=== PATIENT | female | born 1975 | race Two or more races ===

== ENCOUNTER 2021-08-01 13:40 | Outpatient (CLI) | payer OTHER ==
[~2021-08-01 13:40] MED LIST: CIPROFLOXA500 MG/51; NORFLEX100MG PO; VOLTAREN-XR100 MG PO
== END 2021-08-01 13:49 | disposition home or self-care (01) ==
LOC: RAD 13:40
PROVIDERS: ATTEND Physical Medicine & Rehabilitation
DX: M54.6 Pain in thoracic spine (principal); M54.16 Radiculopathy, lumbar region; M54.59 Other low back pain

== ENCOUNTER 2021-09-01 14:04 | Outpatient (CLI) | payer OTHER | END 2021-09-01 14:10 | disposition home or self-care (01) | LOC: RAD 14:04 | PROVIDERS: ATTEND Orthopaedic Surgery | DX: M25.562 Pain in left knee (principal); M93.262 Osteochondritis dissecans, left knee ==

== ENCOUNTER → 2021-09-08 10:37 | Outpatient (CLI) | payer OTHER | END | disposition home or self-care (01) | LOC: LAB 10:06 → EDSTATUS 10:24 → LAB 10:37 | PROVIDERS: ATTEND Orthopaedic Surgery | DX: D64.9 Anemia, unspecified (principal); E88.9 Metabolic disorder, unspecified; D68.8 Other specified coagulation defects; N39.0 Urinary tract infection, site not specified; A49.02 Methicillin resistant Staphylococcus aureus infection, unspecified site; E11.9 Type 2 diabetes mellitus without complications; Z76.89 Persons encountering health services in other specified circumstances; I10 Essential (primary) hypertension; I49.9 Cardiac arrhythmia, unspecified ==

== ENCOUNTER 2021-10-13 10:26 | Outpatient (CLI) | payer OTHER | END 2021-10-13 10:33 | disposition home or self-care (01) | LOC: LAB 10:26 | PROVIDERS: ATTEND Orthopaedic Surgery | DX: N39.0 Urinary tract infection, site not specified (principal); D64.9 Anemia, unspecified; D68.8 Other specified coagulation defects; E88.9 Metabolic disorder, unspecified; E11.65 Type 2 diabetes mellitus with hyperglycemia; A49.02 Methicillin resistant Staphylococcus aureus infection, unspecified site; I10 Essential (primary) hypertension ==

== ENCOUNTER → 2021-10-22 | Outpatient (CLI) | payer OTHER ==
[~2021-10-22] MED LIST changes: +[UNRECOGNIZED DRUG - OTHER] PO
== END | disposition home or self-care (01) ==
LOC: RAD 15:17
PROVIDERS: ATTEND Orthopaedic Surgery
DX: M25.552 Pain in left hip (principal)

== ENCOUNTER 2021-10-24 10:20 | Day surgery (SDC) | payer OTHER | END 2021-10-24 21:15 | disposition home or self-care (01) | LOC: CIR.AMB 10:20 | PROVIDERS: ATTEND Orthopaedic Surgery | DX: M23.8X2 Other internal derangements of left knee (principal); Z91.013 Allergy to seafood ==

== ENCOUNTER 2021-12-03 12:42 | Outpatient (CLI) | payer OTHER | END 2021-12-03 12:49 | disposition home or self-care (01) | LOC: RAD 12:42 | PROVIDERS: ATTEND Orthopaedic Surgery | DX: M23.8X2 Other internal derangements of left knee (principal) ==

== ENCOUNTER 2022-08-14 08:39 | Day surgery (SDC) | payer OTHER ==
[~2022-08-14] VITALS: Ht 160 cm; Wt 64.4 kg
== END 2022-08-14 21:20 | disposition home or self-care (01) ==
LOC: CIR.AMB 08:39
PROVIDERS: ATTEND Surgery
DX: D48.61 Neoplasm of uncertain behavior of right breast (principal); N60.32 Fibrosclerosis of left breast; N60.02 Solitary cyst of left breast; N60.82 Other benign mammary dysplasias of left breast; N62 Hypertrophy of breast; R92.1 Mammographic calcification found on diagnostic imaging of breast; Z20.822 Contact with and (suspected) exposure to COVID-19
CPT/HCPCS: 19301; 19281; L8600

== ENCOUNTER 2022-11-12 14:18 | Outpatient (CLI) | payer OTHER | END 2022-11-12 14:23 | disposition home or self-care (01) | LOC: RAD 14:18 | PROVIDERS: ATTEND Orthopaedic Surgery | DX: M25.562 Pain in left knee (principal) ==